=== PATIENT | female | born 1970 | race Caucasian/White ===

== ENCOUNTER 2018-12-02 16:09 | Emergency (ER) | payer OTHER ==
[~2018-12-02] VITALS: Ht 167.6 cm; Wt 58.1 kg
== END 2018-12-02 19:44 | disposition home or self-care (01) ==
LOC: ER 16:09
DX: S93.401A Sprain of unspecified ligament of right ankle, initial encounter (principal); X50.3XXA Overexertion from repetitive movements, initial encounter; Y93.89 Activity, other specified; Y92.89 Other specified places as the place of occurrence of the external cause; Y99.8 Other external cause status